=== PATIENT | male | born 1965 | race Hispanic/Latino ===

== ENCOUNTER 2017-11-13 17:31 | Emergency (ER) | payer SELFPAY ==
[2017-11-13 17:32] VITALS: BMI 25.8
[2017-11-13 17:48] VITALS: BP 150/95; PULSE 89; RESP 18; TEMP 98.1; O2SAT 98
--- NOTE | 2017-11-13 19:03 | C.PDOC ---
History Of Present Illness 52-year-old male, presents to the emergency department for evaluation of right upper arm and shoulder pain gradually developed over the past 3-4 days. Patients arm got stuck in truck and was manipulated to get out. Pain is worse with movement, otherwise no deformity or skin changes. Time Seen by Provider: 11/13/17 18:06 Chief Complaint (Nursing): Upper Extremity Problem/Injury History Per: Patient History/Exam Limitations: no limitations Onset/Duration Of Symptoms: Days Current Symptoms Are (Timing): Still Present Past Medical History Reviewed: Historical Data, Nursing Documentation, Vital Signs Vital Signs: Last Vital Signs Temp 98.1 F 11/13/17 17:44 Pulse 89 11/13/17 17:44 Resp 18 11/13/17 17:44 BP 150/95 H 11/13/17 17:44 Pulse Ox 98 11/13/17 19:23 - Medical History PMH: Anxiety, Bipolar Disorder, Bronchitis (chronic), Depression - [facility] Procedures DEBRID OPN FX-FINGER (03/25/01) FINGER AMPUTATION (10/14/03) HAND JOINT STRUCT DIVIS (01/05/02) OPEN RED-INT FIX FINGER (03/25/01) PENILE OPERATION NEC (02/16/14) Family History: States: No Known Family Hx - Social History Hx Tobacco Use: No Hx Alcohol Use: Yes Hx Substance Use: Yes (LAST USED 5 DAYS AGO) - Immunization History Hx Tetanus Toxoid Vaccination: No Hx Influenza Vaccination: No Hx Pneumococcal Vaccination: No Review Of Systems Constitutional: Negative for: Fever, Chills Cardiovascular: Negative for: Chest Pain, Palpitations Respiratory: Negative for: Shortness of Breath Gastrointestinal: Negative for: Vomiting Musculoskeletal: Positive for: Arm Pain Neurological: Negative for: Weakness, Numbness Physical Exam - Physical Exam Appears: Non-toxic, No Acute Distress Skin: Warm, Dry, No Rash Head: Normacephalic Neck: Normal ROM Respiratory: No Accessory Muscle Use Extremity: Tenderness (superior aspect of right shoulder over the right proximal humerus), No Deformity, No Swelling Neurological/Psych: Oriented x3, Normal Speech, Normal Motor, Normal Sensation ED Course And Treatment O2 Sat by Pulse Oximetry: 98 (RA) Pulse Ox Interpretation: Normal Disposition - Disposition Referrals: [facility] [Outside] Disposition: HOME/ ROUTINE Disposition Time: 18:58 Condition: STABLE Additional Instructions: Light duty to Right arm take medication as prescribed Follow up with PMD and Ortho in 2-3 days for re-evaluation. return to ED if any worsening or new changes. Prescriptions: Ibuprofen [Motrin Tab] 600 mg PO Q6 #14 tab traMADol [Ultram] 50 mg PO TID #7 tab Instructions: Elbow Sprain (ED), Shoulder Sprain (ED) Forms: [facility] (Latvian), Work Excuse - Clinical Impression Clinical Impression: Shoulder strain, Elbow strain - Scribe Statement The provider has reviewed the documentation as recorded by the Scribe (Sage Hobbs) All medical record entries made by the Scribe were at my direction and personally dictated by me. I have reviewed the chart and agree that the record accurately reflects my personal performance of the history, physical exam, medical decision making, and the department course for this patient. I have also personally directed, reviewed, and agree with the discharge instructions and disposition.
--- NOTE | 2017-11-13 19:03 | C.PDOC ---
Time Seen by Provider: 11/13/17 18:06 Chief Complaint (Nursing): Upper Extremity Problem/Injury Past Medical History Vital Signs: Last Vital Signs Temp 98.1 F 11/13/17 17:44 Pulse 89 11/13/17 17:44 Resp 18 11/13/17 17:44 BP 150/95 H 11/13/17 17:44 Pulse Ox 98 11/13/17 17:44 - Medical History PMH: Anxiety, Bipolar Disorder, Bronchitis (chronic), Depression - [facility] Procedures DEBRID OPN FX-FINGER (03/25/01) FINGER AMPUTATION (10/14/03) HAND JOINT STRUCT DIVIS (01/05/02) OPEN RED-INT FIX FINGER (03/25/01) PENILE OPERATION NEC (02/16/14) Family History: States: Unknown Family Hx - Social History Hx Tobacco Use: No Hx Alcohol Use: Yes Hx Substance Use: Yes (LAST USED 5 DAYS AGO) - Immunization History Hx Tetanus Toxoid Vaccination: No Hx Influenza Vaccination: No Hx Pneumococcal Vaccination: No ED Course And Treatment O2 Sat by Pulse Oximetry: 98 Disposition Counseled Patient/Family Regarding: Diagnosis, Need For Followup, Rx Given - Disposition Referrals: [facility] [Outside] Disposition: HOME/ ROUTINE Disposition Time: 18:58 Condition: STABLE Additional Instructions: Light duty to Right arm take medication as prescribed Follow up with PMD and Ortho in 2-3 days for re-evaluation. return to ED if any worsening or new changes. Prescriptions: Ibuprofen [Motrin Tab] 600 mg PO Q6 #14 tab traMADol [Ultram] 50 mg PO TID #7 tab Instructions: Shoulder Sprain (ED), Elbow Sprain (ED) Forms: [facility] (South Sudanese), Work Excuse - Clinical Impression Clinical Impression: Shoulder strain, Elbow strain
--- NOTE | 2017-11-14 09:12 | RAD ---
PROCEDURE: Radiographs of the right elbow. HISTORY: injury COMPARISON: No prior. FINDINGS: BONES: . No fracture. Lateral humeral epicondylar bony excrescence and/or calcific tendinosis/calcific ligamentous changes. Small posterior olecranon spurring JOINTS: Ulnar humeral joint most notable osteoarthritis. Nearby punctate sub mm loose body possible SOFT TISSUES: Normal. JOINT EFFUSION: None. OTHER FINDINGS: None. IMPRESSION: No fracture or dislocation. No elbow joint effusion appreciated Ulna humeral cystic and hypertrophic arthrosis with sub mm ossific debris/loose body probable punctate calcific tendinosis here another consideration. Lateral humeral epicondylar bony excrescence/exuberant calcification -appears can be seen in a clinical lateral epicondylitis. Calcific tendinopathy with osseous changes from biomechanical stresses here favored
--- NOTE | 2017-11-14 09:19 | RAD ---
PROCEDURE: Radiographs of the right humerus. HISTORY: injury COMPARISON: None. FINDINGS: BONES: . No fracture or focal lesion. SOFT TISSUES: Normal. Sign OTHER FINDINGS: Acromioclavicular and lesser glenohumeral mild arthrosis present IMPRESSION: No fracture or dislocation. Mild arthrosis
--- NOTE | 2017-11-14 09:26 | RAD ---
PROCEDURE: Radiographs of the Right Shoulder HISTORY: injury COMPARISON: No prior. FINDINGS: BONES: . No fracture. JOINTS: . Glenohumeral mild and acromioclavicular moderate osteoarthritis. SOFT TISSUES: Normal. OTHER FINDINGS: None. IMPRESSION: No fracture or dislocation. Right shoulder arthrosis.
== END 2017-11-13 19:14 | disposition home or self-care (01) ==
LOC: C.ER 17:31
DX: S46.911A Strain of unspecified muscle, fascia and tendon at shoulder and upper arm level, right arm, initial encounter (principal); W23.0XXA Caught, crushed, jammed, or pinched between moving objects, initial encounter; Y92.812 Truck as the place of occurrence of the external cause; Y99.0 Civilian activity done for income or pay

== ENCOUNTER 2018-05-30 07:54 | Emergency (ER) | payer OTHER ==
[2018-05-30 08:01] VITALS: RESP 18; BMI 25.1
[2018-05-30] MEDS ORDERED: Acetaminophen-Codeine 300/30 mg Tab PO STA (08:55)
[2018-05-30] MEDS ORDERED: Acetaminophen-Codeine 300/30 mg Tab PO ONE (09:06)
--- NOTE | 2018-05-30 09:25 | RAD ---
Date of service: 05/30/2018 PROCEDURE: Radiographs of the Left Shoulder HISTORY: fall COMPARISON: No prior. FINDINGS: BONES: No evidence of acute displaced fracture nor dislocation. JOINTS: Mild degenerative osteoarthritis left acromioclavicular and left glenohumeral joints. SOFT TISSUES: Normal. OTHER FINDINGS: None. IMPRESSION: Normal radiographs of the left shoulder. Mild DJD as described
--- NOTE | 2018-05-30 09:30 | C.PDOC ---
History Of Present Illness 52 y/o male presents to ED with c/o left shoulder pain for 3 days developed after twisting in bed. Patient states pain radiates to neck and reports prior episode in 11/2017, came to ED and was discharged. Patient denies chest pain, sob , nausea, vomiting or any other complaints at this time. Patient is right hand dominant. Time Seen by Provider: 05/30/18 08:34 Chief Complaint (Nursing): Upper Extremity Problem/Injury History Per: Patient History/Exam Limitations: no limitations Onset/Duration Of Symptoms: Days Current Symptoms Are (Timing): Still Present Past Medical History Reviewed: Historical Data, Nursing Documentation, Vital Signs Vital Signs: Last Vital Signs Temp 97.7 F 05/30/18 08:16 Pulse 92 H 05/30/18 08:16 Resp 18 05/30/18 08:16 BP 138/100 H 05/30/18 08:16 Pulse Ox 100 05/30/18 09:40 - Medical History PMH: Anxiety, Bipolar Disorder, Bronchitis (chronic), Depression Surgical History: No Surg Hx - [facility] Procedures DEBRID OPN FX-FINGER (03/25/01) FINGER AMPUTATION (10/14/03) HAND JOINT STRUCT DIVIS (01/05/02) OPEN RED-INT FIX FINGER (03/25/01) PENILE OPERATION NEC (02/16/14) Family History: States: No Known Family Hx - Social History Hx Tobacco Use: No Hx Alcohol Use: Yes Hx Substance Use: Yes (LAST USED 5 DAYS AGO) - Immunization History Hx Tetanus Toxoid Vaccination: Yes Hx Influenza Vaccination: No Hx Pneumococcal Vaccination: No Review Of Systems Except As Marked, All Systems Reviewed And Found Negative. Musculoskeletal: Positive for: Neck Pain, Shoulder Pain Physical Exam - Physical Exam Appears: Non-toxic, No Acute Distress Skin: Warm, Dry, No Rash Head: Atraumatic, Normacephalic Eye(s): bilateral: Normal Inspection Oral Mucosa: Moist Neck: Supple Cardiovascular: Rhythm Regular Respiratory: Normal Breath Sounds, No Rales, No Rhonchi, No Wheezing Gastrointestinal/Abdominal: Soft, No Tenderness, No Guarding, No Rebound Extremity: Tenderness (left anterior and posterior shoulder), Capillary Refill ( <2 seconds), No Deformity Extremity: Left: Limited ROM To Joint (left shoulder secondary to pain) Neurological/Psych: Oriented x3, Normal Motor, Normal Sensation ED Course And Treatment O2 Sat by Pulse Oximetry: 100 (RA) Pulse Ox Interpretation: Normal Medical Decision Making Medical Decision Making: Assessment: Shoulder pain Progress: Patient refused EKG, states he does not have chest pain Patient d/c with follow up to Dr. Rojas in 2 days. Disposition - Disposition Referrals: Leonidas Rojas III, MD [Staff Provider] - Disposition: HOME/ ROUTINE Disposition Time: 09:28 Condition: STABLE Additional Instructions: follow up with orthopaedic within 2 days call to make an appointment take medications as needed for pain return to ER if symptoms worsens or progress Prescriptions: Cyclobenzaprine [Cyclobenzaprine HCl] 10 mg PO TID PRN #14 tab PRN Reason: Other Lidocaine 5% [Lidoderm] 1 ea TD DAILY PRN #10 patch PRN Reason: Pain, Moderate (4-7) Instructions: Shoulder Pain (DC) Forms: General Discharge Instructions, [facility] (Turkish), Work Excuse - Clinical Impression Clinical Impression: Muscle strain, Sprain - Scribe Statement The provider has reviewed the documentation as recorded by the Mahiibnancy Martines All medical record entries made by the Mahiibnancy were at my direction and personally dictated by me. I have reviewed the chart and agree that the record accurately reflects my personal performance of the history, physical exam, medical decision making, and the department course for this patient. I have also personally directed, reviewed, and agree with the discharge instructions and disposition.
[2018-05-30 10:23] VITALS: BP 131/82; PULSE 65; TEMP 97.8; O2SAT 99
== END 2018-05-30 10:23 | disposition home or self-care (01) ==
LOC: C.ER 07:54
DX: S46.912A Strain of unspecified muscle, fascia and tendon at shoulder and upper arm level, left arm, initial encounter (principal); S43.402A Unspecified sprain of left shoulder joint, initial encounter; X50.1XXA Overexertion from prolonged static or awkward postures, initial encounter

== ENCOUNTER 2018-10-22 10:54 | Emergency (ER) | payer SELFPAY ==
[2018-10-22 10:54] VITALS: BMI 25.1
[2018-10-22 11:33] VITALS: TEMP 98.1
--- NOTE | 2018-10-22 11:54 | C.PDOC ---
History Of Present Illness 53 y/o male presents to ED complaining of right chest pain after a fall last night. Patient states that he was taking a shower last night when the water suddenly got hot and he tried to jump out of the tub. Patient fell on the tub, striking the right side of his chest wall. Denies LOC, head injury, neck pain, nausea, vomiting, chest pain, SOB, or abdominal pain. - HPI Time Seen by Provider: 10/22/18 11:12 Chief Complaint (Nursing): Rib Injury History Per: Patient History/Exam Limitations: no limitations Onset/Duration Of Symptoms: Days Past Medical History Reviewed: Historical Data, Nursing Documentation, Vital Signs Vital Signs: Last Vital Signs Temp 98.1 F 10/22/18 11:33 Pulse 77 10/22/18 11:33 Resp 24 10/22/18 11:33 BP 114/90 10/22/18 11:33 Pulse Ox 98 10/22/18 11:33 - Medical History PMH: Anxiety, Bipolar Disorder, Bronchitis (chronic), Depression - [facility] Procedures DEBRID OPN FX-FINGER (03/25/01) FINGER AMPUTATION (10/14/03) HAND JOINT STRUCT DIVIS (01/05/02) OPEN RED-INT FIX FINGER (03/25/01) PENILE OPERATION NEC (02/16/14) Family History: States: No Known Family Hx - Social History Hx Tobacco Use: No Hx Alcohol Use: Yes Hx Substance Use: No - Immunization History Hx Tetanus Toxoid Vaccination: Yes Hx Influenza Vaccination: No Hx Pneumococcal Vaccination: Yes Review Of Systems Except As Marked, All Systems Reviewed And Found Negative. Constitutional: Negative for: Fever, Chills Cardiovascular: Negative for: Chest Pain Respiratory: Negative for: Shortness of Breath Gastrointestinal: Negative for: Nausea, Vomiting, Abdominal Pain Musculoskeletal: Positive for: Other (Right chest wall pain). Negative for: Nec k Pain Neurological: Negative for: Other (LOC) Physical Exam - Physical Exam Appears: Non-toxic, No Acute Distress Skin: Warm, Dry Head: Atraumatic, Normacephalic Eye(s): bilateral: Normal Inspection Oral Mucosa: Moist Neck: Normal ROM, Supple Chest: Symmetrical Cardiovascular: Rhythm Regular, No Murmur Respiratory: Normal Breath Sounds, No Rales, No Rhonchi, No Wheezing Gastrointestinal/Abdominal: Soft, No Tenderness Extremity: Tenderness (in right lateral rib cage), No Deformity, No Swelling Extremity: Bilateral: Normal Color And Temperature Neurological/Psych: Oriented x3, Normal Speech ED Course And Treatment O2 Sat by Pulse Oximetry: 98 (RA) Pulse Ox Interpretation: Normal - Other Rad Ribs XR X-Ray: Read By Radiologist Interpretation: FINDINGS: RIGHT RIBS: No fracture or focal lesion visualized. LUNGS: No acute pulmonary disease appreciable bilaterally. PLEURA: No pneumothorax or pleural fluid. CARDIOVASCULAR: Normal cardiac size. No pulmonary vascular congestion. No aortic atherosclerotic calcification present. OTHER FINDINGS: None. IMPRESSION: Unremarkable, stable radiographs of the chest and right ribs. No right rib fracture. Medical Decision Making Medical Decision Making: Plan: --Right rib XR 12:15 -- Patient reports pain improved since applying ice on top of injured area. Disposition Counseled Patient/Family Regarding: Studies Performed, Diagnosis, Need For Followup - Disposition Referrals: [facility] [Outside] [facility] [Outside] Disposition: HOME/ ROUTINE Disposition Time: 14:27 Condition: STABLE Prescriptions: Cyclobenzaprine [Flexeril] 5 mg PO TID PRN #15 tab PRN Reason: Muscle Spasm RX: Ibuprofen [Motrin Tab] 800 mg PO TID PRN #30 tab PRN Reason: Pain, Moderate (4-7) Instructions: Bruised Rib (DC) Forms: General Discharge Instructions, Work/School/Gym Excuse, [facility] (Yi) - POA Present On Arrival: None - Clinical Impression Clinical Impression: Contusion of rib on right side - Scribe Statement The provider has reviewed the documentation as recorded by the Mariano Amador Provider Attestation: All medical record entries made by the Mariano were at my direction and personally dictated by me. I have reviewed the chart and agree that the record accurately reflects my personal performance of the history, physical exam, medical decision making, and the department course for this patient. I have also personally directed, reviewed, and agree with the discharge instructions and disposition.
--- NOTE | 2018-10-22 14:28 | RAD ---
Date of service: 10/22/2018 PROCEDURE: Radiographs of the Chest and Right Ribs. HISTORY: TRAUMA COMPARISON: Chest radiograph 01/11/2014. TECHNIQUE: Frontal radiograph of the chest and multiple oblique radiographs of the right ribs were obtained. FINDINGS: RIGHT RIBS: No fracture or focal lesion visualized. LUNGS: No acute pulmonary disease appreciable bilaterally. PLEURA: No pneumothorax or pleural fluid. CARDIOVASCULAR: Normal cardiac size. No pulmonary vascular congestion. No aortic atherosclerotic calcification present OTHER FINDINGS: None. IMPRESSION: Unremarkable, stable radiographs of the chest and right ribs. No right rib fracture. Findings discussed with Dr. Bess with written down and read back verification 10/22/2018 2:20 p.m..
[2018-10-22 14:41] VITALS: BP 141/90; PULSE 80; RESP 23
[2018-10-26 05:44] VITALS: O2SAT 98
== END 2018-10-22 14:41 | disposition home or self-care (01) ==
LOC: C.ER 10:54
DX: S20.211A Contusion of right front wall of thorax, initial encounter (principal); W18.30XA Fall on same level, unspecified, initial encounter; Y93.E1 Activity, personal bathing and showering
CPT/HCPCS: 71101; 96372; 99285; J1885